=== PATIENT | male | born 2005 | race Caucasian/White ===

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

== ENCOUNTER 2023-04-07 17:58 | Emergency (ER) | payer OTHER ==
[~2023-04-07 17:58] MED LIST changes: +SEPTDS PO
== END 2023-04-07 18:46 | disposition left against medical advice (07) ==
LOC: ED 17:58
DX: R52 Pain, unspecified (principal); Z53.21 Procedure and treatment not carried out due to patient leaving prior to being seen by health care provider

== ENCOUNTER 2024-10-14 20:26 | Emergency (ER) | payer SELFPAY ==
[~2024-10-14] VITALS: Ht 175.2 cm; Wt 72.6 kg
[2024-10-14 20:40] VITALS: BP 137/61
[2024-10-14] MEDS ORDERED: Ketorolac Tromethamine 30 MG/ML VIAL IV ONE (21:10)
[2024-10-14] MEDS ORDERED: SODIUM CHLORIDE 0.9% 1,000 ML IV ONE (21:10)
[2024-10-14] MEDS ORDERED: diphenhydrAMINE hydrochloride 50 MG/ML VIAL IV ONE (21:10)
[2024-10-14] MEDS ORDERED: Ondansetron Hydrochloride 4 MG/2 ML VIAL IV ONE (21:10)
[2024-10-14] MEDS ORDERED: NAPROSYN500 MG PO (23:12)
== END 2024-10-14 23:15 | disposition home or self-care (01) ==
LOC: ED 20:26
DX: R51.9 Headache, unspecified (principal); W18.09XA Striking against other object with subsequent fall, initial encounter; Y93.89 Activity, other specified; Y92.89 Other specified places as the place of occurrence of the external cause; Y99.8 Other external cause status